=== PATIENT | male | born 1970 | race Caucasian/White ===

== ENCOUNTER → 2016-04-30 | Outpatient (CLI) | payer BC ==
[~2016-04-30] MED LIST: REGADENOSON INJ 0.4 MG/5 ML SYR ONE
--- NOTE | 2016-05-01 10:47 | RADRPT ---
EXAM DATE/TIME: 04/30/2016 09:19 [place] COMPARISON: No previous studies available for comparison. INDICATIONS : Dyspnea with chest pressure. DOSE: 31.4 mCi Tc99m Myoview at stress. 31.2 mCi Tc99m Myoview at rest. 0.4 mg Lexiscan STRESS SYMPTOMS: None. EJECTION FRACTION: 40% MEDICAL HISTORY : Hypertension. SURGICAL HISTORY : Appendectomy. ENCOUNTER: Initial ACUITY: 1 day PAIN SCALE: 1/10 LOCATION: chest TECHNIQUE: The patient underwent pharmacologic stress with infusion of prescribed dose. Continuous ECG tracing was monitored during stress. Gated SPECT imaging was performed after stress and conventional SPECT i maging was performed at rest. The examination was performed on a SPECT/CT scanner, both attenuation and non-corrected datasets were reviewed. FINDINGS: The best perfused myocardium is the lateral wall followed by the inferior wall and septum. There is no redistribution to suggest stress-induced ischemia. There is dilatation of the ventricular cavity is noted with hypokinesis and ejection fraction of 40%. 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 There is no evidence fo r stress-induced ischemia. Correlation is suggested. . RISK CATEGORY: Intermediate (1-3% Annual Mortality Rate) Theodore Nieves MD FACR on May 01, 2016 at 10:41 Board Certified Radiologist. This report was verified electronically.
== END ==
LOC: HRAD 07:13
PROVIDERS: ATTEND Nuclear Medicine Nuclear Cardiology
DX: R06.09 Other forms of dyspnea (principal)
CPT/HCPCS: 93017; J2785; 78452; A9502

== ENCOUNTER → 2016-05-01 | Outpatient (CLI) | payer BC ==
--- NOTE | 2016-05-01 21:04 | EC ---
Study Study Date:05/01/2016 STUDY CONCLUSIONS SUMMARY - Left ventricle: The cavity size was normal. Wall thickness was normal. Systolic function was normal. The estimated ejection fraction was 55%. Wall motion was normal; there were no regional wall motion abnormalities. - Right ventricle: The cavity size was mildly dilated. Wall thickness was normal. If LV function is below 40, please consider prescribing an ACEI or ARB or document rationale for non-use. PROCEDURE DATA STUDY STATUS: Elective. Procedure: Transthoracic echocardiography. Image quality was fair. Scanning was performed from the parasternal, apical, and subcostal acoustic windows. Study completion: The patient tolerated the procedure well. Transthoracic echocardiography. M-mode, complete 2D, complete spectral Doppler, and color Doppler. Patient status: Inpatient. CARDIAC ANATOMY LEFT VENTRICLE: The cavity size was normal. Wall thickness was normal. Systolic function was normal. The estimated ejection fraction was 55%. Wall motion was normal; there were no regional wall motion abnormalities. AORTIC VALVE: Trileaflet; normal thickness leaflets. Doppler: Transvalvular velocity was within the normal range. There was no stenosis. No regurgitation. AORTA: Aortic root: The aortic root was normal in size. MITRAL VALVE: Structurally normal valve. Doppler: Transvalvular velocity was within the normal range. There was no evidence for stenosis. No regurgitation. LEFT ATRIUM: The atrium was normal in size. RIGHT VENTRICLE: The cavity size was mildly dilated. Wall thickness was normal. PULMONIC VALVE: Doppler: Transvalvular velocity was within the normal range. There was no evidence for stenosis. No regurgitation. TRICUSPID VALVE: Structurally normal valve. Doppler: Transvalvular velocity was within the normal range. Trace regurgitation. PULMONARY ARTERY: The main pulmonary artery was normal-sized. Systolic pressure was within the normal range. RIGHT ATRIUM: The atrium was normal in size. PERICARDIUM: There was no pericardial effusion. SYSTEMIC VEINS: Inferior vena cava: The vessel was normal in size. Prepared and signed by Sharad Stovall [id number]
== END ==
LOC: HECH 10:09
PROVIDERS: ATTEND Nuclear Medicine Nuclear Cardiology
DX: R06.09 Other forms of dyspnea (principal)
CPT/HCPCS: 93306